=== PATIENT | female | born 1950 | race Caucasian/White ===

== ENCOUNTER → 2023-07-25 19:23 | Outpatient (REF) | payer MEDICARE, OTHER, SELFPAY | LOC: WDC 19:23 | PROVIDERS: ATTENDING PHYSICIAN Physician Assistant; FAMILY PHYSICIAN Surgery | DX: Z12.31 Encounter for screening mammogram for malignant neoplasm of breast (principal) | CPT/HCPCS: 77063; 77067 ==

== ENCOUNTER → 2024-02-03 13:01 | Outpatient (REF) | payer MEDICARE, OTHER, SELFPAY | LOC: WDC 13:01 | PROVIDERS: ATTENDING PHYSICIAN Surgery; FAMILY PHYSICIAN Physician Assistant | DX: N60.92 Unspecified benign mammary dysplasia of left breast (principal) | CPT/HCPCS: 76641 ==

== ENCOUNTER → 2024-02-21 12:41 | Outpatient (REF) | payer MEDICARE, OTHER, SELFPAY | LOC: RAD 12:41 | PROVIDERS: ATTENDING PHYSICIAN Physician Assistant; REFERRING PHYSICIAN Surgery | DX: M81.0 Age-related osteoporosis without current pathological fracture (principal) | CPT/HCPCS: 77080 ==

== ENCOUNTER → 2024-08-04 15:02 | Outpatient (REF) | payer OTHER, SELFPAY | LOC: RCS 15:02 | PROVIDERS: ATTENDING PHYSICIAN Internal Medicine Cardiovascular Disease; FAMILY PHYSICIAN Physician Assistant | DX: I50.30 Unspecified diastolic (congestive) heart failure (principal); I27.20 Pulmonary hypertension, unspecified | CPT/HCPCS: 93306 ==

== ENCOUNTER 2024-08-27 09:39 | Day surgery (SDC) | payer OTHER, SELFPAY ==
[2024-08-24 13:13] VITALS: BMI 38.1
[2024-08-24 13:47] LABS: % Basophils 0.8 % (0-2); % Lymphocytes 27.6 % (20.5-51.1); % Monocytes 9.8 % (1.7-9.3); % Neutrophils 61.8 % (42.2-75.2); Absolute Lymphocytes 1.3 10^3/uL (1.2-3.4); Absolute Monocytes 0.5 10^3/uL (0.1-0.6); Hematocrit 33.9 % (37.0-47.0); Hemoglobin 11.5 g/dL (12.0-16.0); Mean Corp Hgb Conc. 33.9 g/dL (33.0-37.0); Mean Corpuscular Volume 97.1 fL (81.0-99.0); Mean Platelet Volume 10.7 fL (7.4-10.4); Nucleated Red Blood Cells % 0 %; Platelet Count 156 10^3/uL (130-400); Red Blood Cell Count 3.49 10^6/uL (4.20-5.40); Red Cell Dist. Width 12.1 % (11.5-14.5); White Blood Cell Count 4.8 10^3/uL (4.8-10.8)
[2024-08-27] VITALS (7 sets, daily range): BP systolic 143–158; BP diastolic 77–89
[2024-08-27 10:44] LABS: Glucose - Point of Care 292 mg/dl (70-99)
--- NOTE | 2024-08-27 14:36 | ITS.CL.PN ---
Programming Director - Procedure Note
Procedure
Procedure Note:
CARDIAC CATHETERIZATION REPORT
Date of Procedure: 08/27/2024
Referring: Dr. Tianna Chapa MD
Indication: Pulmonary hypertension
PROCEDURE: right heart catheterization
ACCESS: 5F right antecubital vein (closure: manual hemostasis)
CATHETERS: 5F [place]
MODERATE SEDATION: 25 minutes of moderate sedation was utilized. An independent medical records library professor was present to assist with and help manage the patient's level of consciousness and physiologic status.
HEMODYNAMIC DATA
SBP 170/80 (mean 115) mmHg
RA 21 mmHg
RV 58/11 (EDP 17) mmHg
PA 68/38 (mean 46) mmHg
PCWP 25 mmHg
SaO2 97%
SvO2 63 point %
Hb 10.7 g/dL
CO/CI 5.27/2.58 L/min/m2
SVR 1426 dsc*-5
PVR 4.0 Wood units
RADIATION: dose 12.39 mGy; DAP 1.7643 Gy*cm2; fluoroscopy time 1.3 min
CONCLUSIONS
1. Severely elevated right ventricular filling pressure and moderately elevated left ventricular filling pressure
2. 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
3. Normal cardiac output
Copy to: Dr. Tianna Chapa MD (winchman/crane operator); GRACE Tucker (PCP)
Signed: Kenny Dickens MD, PhD
== END 2024-08-27 14:20 | disposition home or self-care (01) ==
LOC: CATH 09:39
PROVIDERS: ATTENDING PHYSICIAN Student in an Organized Health Care Education/Training Program; FAMILY PHYSICIAN Physician Assistant; OTHER PHYSICIAN Internal Medicine Cardiovascular Disease
DX: I27.20 Pulmonary hypertension, unspecified (principal); I25.10 Atherosclerotic heart disease of native coronary artery without angina pectoris; I48.19 Other persistent atrial fibrillation; I13.0 Hypertensive heart and chronic kidney disease with heart failure and stage 1 through stage 4 chronic kidney disease, or unspecified chronic kidney disease; I50.32 Chronic diastolic (congestive) heart failure; N18.2 Chronic kidney disease, stage 2 (mild); E11.22 Type 2 diabetes mellitus with diabetic chronic kidney disease; E78.5 Hyperlipidemia, unspecified; I87.2 Venous insufficiency (chronic) (peripheral); I07.1 Rheumatic tricuspid insufficiency; G47.33 Obstructive sleep apnea (adult) (pediatric); E66.9 Obesity, unspecified; Z68.38 Body mass index [BMI] 38.0-38.9, adult; F32.A Depression, unspecified; F41.9 Anxiety disorder, unspecified; Z87.891 Personal history of nicotine dependence; Z79.01 Long term (current) use of anticoagulants; Z79.4 Long term (current) use of insulin
CPT/HCPCS: 99152; 99153; C1894; 36415; 82962; 85025; 93005; 93451

== ENCOUNTER → 2024-12-29 14:17 | Outpatient (REF) | payer OTHER, SELFPAY | LOC: RAD 14:17 | PROVIDERS: ATTENDING PHYSICIAN Internal Medicine Critical Care Medicine; FAMILY PHYSICIAN Family Medicine | DX: I27.20 Pulmonary hypertension, unspecified (principal); Z01.818 Encounter for other preprocedural examination | CPT/HCPCS: 93970 ==

== ENCOUNTER → 2025-01-08 13:11 | Outpatient (REF) | payer OTHER, SELFPAY | LOC: RAD 13:11 | PROVIDERS: ATTENDING PHYSICIAN Internal Medicine Critical Care Medicine; FAMILY PHYSICIAN Family Medicine | DX: I27.20 Pulmonary hypertension, unspecified (principal); Z01.818 Encounter for other preprocedural examination | CPT/HCPCS: 71046; 78582; A9540; A9567 ==

== ENCOUNTER 2025-03-04 06:16 | Day surgery (SDC) | payer OTHER, SELFPAY ==
[2025-03-04 07:42] LABS: Glucose - Point of Care 313 mg/dl (70-99)
[2025-03-04 07:45] VITALS: BP 165/75
[2025-03-04 07:50] VITALS: BMI 33.1
[2025-03-04 08:00] VITALS: BMI 33.1
[2025-03-04] MEDS: NOVOLOG vial 6 UNITS SC (08:27)
[2025-03-04 09:32] VITALS: BP 160/63
[2025-03-04 09:40] LABS: Glucose - Point of Care 295 mg/dl (70-99)
[2025-03-04 09:45] VITALS: BP 147/73
[2025-03-04] MEDS: NOVOLOG vial 4 UNITS SC (09:53)
== END 2025-03-04 10:24 | disposition home or self-care (01) ==
LOC: SDS 06:16
PROVIDERS: ATTENDING PHYSICIAN Internal Medicine Gastroenterology
DX: Z12.11 Encounter for screening for malignant neoplasm of colon (principal); D12.0 Benign neoplasm of cecum; K62.89 Other specified diseases of anus and rectum; K64.8 Other hemorrhoids; K64.4 Residual hemorrhoidal skin tags; Z80.0 Family history of malignant neoplasm of digestive organs
CPT/HCPCS: 45385; 82962; 88305

== ENCOUNTER → 2025-03-11 13:00 | Outpatient (REF) | payer OTHER, SELFPAY | LOC: WDC 13:00 | PROVIDERS: ATTENDING PHYSICIAN Physician Assistant | DX: Z12.31 Encounter for screening mammogram for malignant neoplasm of breast (principal) | CPT/HCPCS: 77063; 77067 ==